=== PATIENT | female | born 1925 | race African-American/Black ===

== ENCOUNTER → 2016-11-07 | Outpatient (CLI) | payer OTHER ==
[~2016-11-07] MED LIST: ACID CONTROLLER10 MG PO; AMLODIPINE BESYL5 MG PO; APAP500 PO; ASA81BEC PO; ASCORBATE CALCIUM PO; BRILINTA90 MG PO; CALCIUM ASCORB500 MG PO; CARDURA4 MG PO; CARTIA XT120 M1 PO; COREG25 MG PO; COREG6.25 MG PO; DEMADEX20 MG PO; DUREZOL5 ML; FISH OIL 1,001000 M2 PO; FLOXIN OTI0.3 %/5 M1; GLUCOSAMINE HC500 MG PO; HYDROCODON-ACE1 EAC7 PO; IMDUR 60 MG TAB60 M1 PO; IRON325 PO; ISOSORBIDE MONO10 MG PO; LASIX 20 MG TAB20 MG PO; LEVAQUIN 250 M250 MG PO; LIPITOR40 MG PO; METOLAZONE 5 MG5 MG PO; MUCINEX TA600 MG/TA2 PO; NOVOLOG100 UNIT/1 SUBQ; RANEXA1000 MG PO; TRAMADOL 50 MG50 MG PO; TRANSDERM-SCO1 PATC1 TD
--- NOTE | ~2016-11-07 | 2DMMODE ---
[facility] [address] [facility] [employer] [address] 2 D/M-MODE ECHOCARDIOGRAM Name: POP LANDRY Room #: REG [facility]#: [id number] Admission: 11/07/16 Attend Phys: Tony Jerez MD Discharge: Date of : [birth year] Date of Service: 11/07/16 1108 Report #: [id number] THIS REPORT FOR: //name// APPROVED REPORT Study performed: 11/07/2016 08:32:50 EXAM: Comprehensive 2D, Doppler, and color-flow Echocardiogram Patient Location: Out-Patient Room #: Echo lab Status: routine Other Information Study Quality: Good Indications CAD Hypertension/HDD 2D Dimensions LVEF(%): 56.59 (>50%) IVSd: 11.81 (7-11mm) LVOT Diam: 16.78 (18-24mm) LVDd: 47.74 mm PWd: 11.95 (7-11mm) Ascending Ao: 28.12 (22-36mm) LVDs: 33.60 (25-40mm) Aortic Root: 26.99 mm IVC: 21.00 mm Cardenas's LVEF: 56.59 % Volumes Left Atrial Volume (Systole) Single Plane 4CH: 81.59 mL Single Plane 2CH: 58.57 mL LA ESV Index: 47.00 mL/m2 Aortic Valve AoV Peak Agustin.: 2.39 m/s AO Peak Gr.: 22.92 mmHg LVOT Max P.99 mmHg AO Mean Gr.: 13.25 mmHg LVOT Mean P.46 mmHg AO V2 Mean: 1.73 m/s LVOT Max V: 1.00 m/s AO V2 VTI: 58.97 cm LVOT Mean V: 0.74 m/s MUKUND (VTI): 0.98 cm2 LVOT V1 VTI: 26.24 cm MUKUND Vmax: 0.92 cm2 SV (LVOT): 57.98 mL Mitral Valve E/A Ratio: 0.7 [facility] [address] [id number] 2 D/M-MODE ECHOCARDIOGRAM Name: POP LANDRY Room #: REG [facility]#: [id number] Admission: 11/07/16 Attend Phys: Tony Jerez MD Discharge: Date of : [birth year] Date of Service: 11/07/16 1108 Report #: [id number] MV Decel. Time: 282.71 ms MV E Max Agustin.: 0.81 m/s MV A Agustin.: 1.19 m/s MV PHT: 81.99 ms IVRT: 143.02 ms Pulmonary Valve PV Peak Agustin.: 1.09 m/s PV Peak Gr.: 4.75 mmHg Pulmonary Vein P Vein S: 0.34 m/s P Vein A: 0.17 m/s P Vein D: 0.18 m/s P Vein A Dur.: 124.6 msec P Vein S/D Ratio: 1.89 Tricuspid Valve TR Peak Agustin.: 2.86 m/s RAP Estimate: 10.00 mmHg TR Peak Gr.: 32.68 mmHg PA Pressure: 43.00 mmHg Left Ventricle The left ventricle is normal size. There is severe hypokinesis in the apical inferior wall. There is mild hypokinesis in the mid-inferior wall. Mild concentric left ventricular hypertrophy. Left ventricular systolic function is mildly decreased. LVEF is 45-50%. Grade I - abnormal relaxation pattern. Right Ventricle The right ventricle is normal size. The right ventricular systolic function is normal. Atria Left atrium is dilated. The right atrium size is normal. Aortic Valve The aortic valve is normal in structure. Aortic valve is calcified. No aortic regurgitation is present. Mild to moderate aortic stenosis. Mitral Valve The mitral valve is normal in structure. Mild mitral regurgitation. No evidence of mitral valve stenosis. Tricuspid Valve The tricuspid valve is normal in structure. There is mild tricuspid regurgitation. The right atrial pressure is estimated at 10 mmHg. There is [place] [address] 2 D/M-MODE ECHOCARDIOGRAM Name: POP LANDRY Room #: REG [facility]#: [id number] Admission: 11/07/16 Attend Phys: Tony Jerez MD Discharge: Date of : [birth year] Date of Service: 11/07/16 1108 Report #: [id number] Pulmonic Valve The pulmonary valve is normal in structure. Trace pulmonic regurgitation. Great Vessels The aortic root is normal in size. IVC is dilated and collapses >50% with inspiration. Pericardium There is no pericardial effusion. <Conclusion> The left ventricle is normal size. Mild concentric left ventricular hypertrophy. Left ventricular systolic function is mildly decreased. The right ventricle is normal size. Left atrium is dilated. The right atrium size is normal. Mild to moderate aortic stenosis. Mild mitral regurgitation. There is mild tricuspid regurgitation. The right atrial pressure is estimated at 10 mmHg. There is moderate pulmonary hypertension. <ELECTRONICALLY SIGNED> By: Tony Jerez MD 11/07/16 1108 1108 1108 Tony Jerez MD /INF
== END ==
LOC: CV 09:10
DX: I25.10 Atherosclerotic heart disease of native coronary artery without angina pectoris (principal); I10 Essential (primary) hypertension